=== PATIENT | male | born 1975 | race Caucasian/White ===

== ENCOUNTER 2017-11-18 08:00 | Outpatient (CLI) | payer OTHER | END 2017-11-18 08:01 | disposition home or self-care (01) | LOC: LAB.WCP 08:00 | PROVIDERS: ATTEND Family Medicine | DX: E05.90 Thyrotoxicosis, unspecified without thyrotoxic crisis or storm (principal) | CPT/HCPCS: 36415; 81599; 83519; 84439; 84481 ==

== ENCOUNTER 2017-11-22 07:45 | Outpatient (CLI) | payer OTHER ==
--- NOTE | 2017-11-22 09:58 | MRI Report ---
Reason: DIZZINESS, HAND WEAKNESS, RIGHT Procedure Date: 11/22/2017 Accession Number: [id number] / [id number] Procedure: MRI - Brain W/O CPT Code: FULL RESULT: EXAM: MRI BRAIN WITHOUT CONTRAST EXAM DATE: 11/22/2017 08:34 AM. CLINICAL HISTORY: 42-year-old male with dizziness, right hand numbness, and weakness. Tingling sensations. COMPARISON: [facility] W/ 05/11/2014. TECHNIQUE: Multiplanar, multisequence T1-weighted and fluid-sensitive MR sequences of the brain were performed. Sequences optimized for routine evaluation. Other: None. IV Contrast: None. FINDINGS: Brain Volume: Normal for age. Parenchyma/Dura: There is slight DWI hyperintensity involving the right superior cerebellar peduncle (series 305 image 56) and right brachium pontis (series 305 image 48), with associated FLAIR signal abnormality (for example series 701 image 15, image 16). No significant underlying mass effect appreciated. No parenchymal foci susceptibility artifact. No mass effect acute infarct or hemorrhage. No white matter lesions identified. 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 No hydrocephalus. No abnormal extra-axial fluid collection or hemorrhage. Orbits: Symmetric and unremarkable. Sella Turcica: The pituitary gland, cavernous sinuses, suprasellar cistern and optic chiasm are unremarkable. IAC: Symmetric and unremarkable. Vasculature: Normal signal flow void is seen in the major arterial structures at the skull base. Sinuses: No acute appearing sinus disease. Bones: No focal pathologic appearing marrow signal changes. Other: None. IMPRESSION: 1. There is slight DWI hyperintensity involving the right superior cerebellar peduncle (series 305 image 56) and right brachium pontis (series 305 image 48), with associated FLAIR signal abnormality (for example series 701 image 15, image 16). No significant underlying mass effect appreciated. Imaging appearance on this noncontrast study is nonspecific, primary differential considerations including a subacute infarct, underlying neoplasm such as glioma, and focus of demyelination/inflammation. Consider follow-up contrast-enhanced MRI to better evaluate. Continued surveillance recommended. In addition, correlate with the patient history and characteristics of symptom onset. 2. 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 The imaging appearance on this noncontrast study is nonspecific, possible diagnostic considerations include central neurocytoma, ependymal cyst. For this finding as well, contrast-enhanced MRI would be of benefit. 3. No MRI evidence of acute infarct, acute intracranial hemorrhage, mass effect, midline shift, or hydrocephalus. RADIA The above findings were discussed with Dr. Beard by Dr. Palmira Arshad at 09:56 hrs on 11/22/17.
[2017-11-22] MEDS ORDERED: GADOBUTROL 10 MMOL/10 ML VIAL ONE (12:12)
[2017-11-22] MEDS ORDERED: GADOBUTROL 10 MMOL/10 ML VIAL IVP ONE (13:15)
--- NOTE | 2017-11-22 14:09 | MRI Report ---
Reason: PRIOR ABN MRI Procedure Date: 11/22/2017 Accession Number: [id number] / [id number] Procedure: MRI - Brain W/Contrast CPT Code: FULL RESULT: EXAM: MRI BRAIN WITH CONTRAST EXAM DATE: 11/22/2017 01:05 PM. CLINICAL HISTORY: Signal abnormality in the right superior and middle cerebellar peduncle on noncontrast study earlier in the day. Small nodule in the right lateral ventricle. COMPARISON: BRAIN W/O 11/22/2017 8:06 AM. TECHNIQUE: Multiplanar, postcontrast T1-weighted MR sequences of the brain were performed. Sequences optimized for postcontrast evaluation. Other: None. IV Contrast: 10 cc Gadavist. FINDINGS: (See report of noncontrast brain MRI earlier in the day.) Brain Volume: Normal for age. Parenchyma: Peripheral enhancement is seen in the right superior cerebellar peduncle extending into the adjacent superior aspect of the middle cerebellar peduncle. This surrounds the previously noted FLAIR bright signal in this location. Mild central T1 hypointense signal is seen. No significant mass effect is evident. No additional foci of abnormal intracranial enhancement is appreciated Previously noted small nodule along the right aspect of the septum pellucidum within the anterior body of the right lateral ventricle is not well seen. No abnormal enhancement is seen. Faint peripheral T1 isointense nodule measuring approximately 6 mm in diameter and 2 mm in thickness is seen. ventricles/Cisterns: No hydrocephalus. No abnormal extra-axial fluid collection or hemorrhage. Orbits: Symmetric and unremarkable. Sella Turcica: The pituitary gland, cavernous sinuses, suprasellar cistern and optic chiasm are unremarkable. IAC: Symmetric and unremarkable. Vasculature: Normal enhancement of arterial system is seen at the skull base. Normal enhancement of the dural sinuses is noted. The right transverse sinus and jugular bulb are dominant. Sinuses: No acute sinus disease. Bones: No focal pathologic appearing marrow signal changes. Other: None. IMPRESSION: (See report of noncontrast brain MRI earlier in the day.) 1. Peripheral enhancement seen about FLAIR bright signal abnormality in the right superior cerebellar peduncle and adjacent superior middle cerebellar peduncle. Findings suggest demyelination or inflammatory process. Sequela of subacute ischemia is considered unlikely. Neoplasm is considered less likely. Follow-up examination to assess stability would be of value. 2. No abnormal enhancement seen within nodule along the right aspect of the septum pellucidum within the anterior body of the right lateral ventricle. Lack of enhancement may go along with ependymal cyst or subependymoma. Central neurocytoma, ependymoma, meningioma, and choroid plexus papilloma would all typically demonstrate enhancement. RADIA
== END 2017-11-22 07:46 | disposition home or self-care (01) ==
LOC: DI 07:45
PROVIDERS: ATTEND Family Medicine
DX: R42 Dizziness and giddiness (principal); R29.898 Other symptoms and signs involving the musculoskeletal system; R90.89 Other abnormal findings on diagnostic imaging of central nervous system; E05.90 Thyrotoxicosis, unspecified without thyrotoxic crisis or storm
CPT/HCPCS: 70551; 70552; A9585

== ENCOUNTER 2017-11-22 08:47 | Outpatient (CLI) | payer OTHER | END 2017-11-22 08:48 | disposition home or self-care (01) | LOC: LAB 08:47 | PROVIDERS: ATTEND Family Medicine | DX: E05.90 Thyrotoxicosis, unspecified without thyrotoxic crisis or storm (principal); R42 Dizziness and giddiness | CPT/HCPCS: 36415; 81599; 83519; 84443; 86140 ==

== ENCOUNTER 2018-11-09 14:04 | Emergency (ER) | payer OTHER ==
[2018-11-09 14:38] LABS: BASOPHILS % (AUTO) 0.2 %; EOSINOPHILS # (AUTO) 0.4 10^3/uL (0.0-0.7); EOSINOPHILS % (AUTO) 3.3 %; HGB - HEMOGLOBIN 14.2 g/dL (14.0-18.0); LYMPHOCYTES # (AUTO) 1.9 10^3/uL (1.5-3.5); LYMPHOCYTES % (AUTO) 16.9 %; MEAN CORPUSCULAR HEMOGLOBIN 28.5 pg (27.0-31.0); MEAN CORPUSCULAR HGB CONC 35.1 g/dL (32.0-36.0); MEAN CORPUSCULAR VOLUME 81.3 fL (80.0-94.0); MEAN PLATELET VOLUME 9.1 fL (7.4-11.4); MONOCYTES # (AUTO) 0.7 10^3/uL (0.0-1.0); NEUTROPHILS # (AUTO) 8.1 10^3/uL (1.5-6.6); NEUTROPHILS % (AUTO) 73.1 %; PLT - PLATELET COUNT 267 10^3/uL (130-450); RED BLOOD COUNT 4.98 10^6/uL (4.70-6.10); RED CELL DISTRIBUTION WIDTH 11.9 % (12.0-15.0); WHITE BLOOD COUNT 11.1 x10^3/uL (4.8-10.8)
[2018-11-09 14:50] LABS: ALBUMIN 4.3 g/dL (3.2-5.5); ALBUMIN/GLOBULIN RATIO 1.9 (1.0-2.2); BILIRUBIN,TOTAL 0.8 mg/dL (0.2-1.0); CALCIUM 9.2 mg/dL (8.5-10.3); CREATININE 0.9 mg/dL (0.6-1.2); TOTAL PROTEIN 6.6 g/dL (6.7-8.2)
--- NOTE | 2018-11-09 14:51 | XRAY Report ---
Reason: chest pain Procedure Date: 11/09/2018 Accession Number: [id number] / [id number] Procedure: XR - Chest 1 View X-Ray CPT Code: 77927 FULL RESULT: EXAM: CHEST RADIOGRAPHY EXAM DATE: 11/09/2018 02:42 PM. CLINICAL HISTORY: Chest pain. COMPARISON: None. TECHNIQUE: 1 view. FINDINGS: Lungs/Pleura: No focal opacities evident. No pleural effusion. No pneumothorax. Mediastinum: Within exam limitations, the cardiomediastinal contour is normal. Other: None. IMPRESSION: No acute cardiopulmonary abnormality. RADIA
[2018-11-09] MEDS ORDERED: SODIUM CHLORIDE 0.9% 1,000 ML IV ONE (15:13)
--- NOTE | 2018-11-09 15:15 | ED Physician Documentation ---
PD HPI CHEST PAIN - Stated complaint Stated Complaint: CHEST PAIN - Chief complaint Chief Complaint: General - History obtained from History obtained from: Patient, Family - History of Present Illness Timing - onset: Today Timing - onset during: Rest Timing - duration: Minutes Timing - details: Abrupt onset, Now resolved Quality: Sharp, Pain Location: Right chest Radiation: No: Jaw, Neck, Back, Abdominal, Left upper extremity, Right upper extremity Improved by: Nothing Worsened by: No: Exertion, Inspiration Associated symptoms: Shortness of air, Feeling faint / dizzy, General Weakness. No: Diaphoresis, Nausea, Vomiting, Palpitations, Cough Similar symptoms before: Has not had sx before Recently seen: Other (recent MS flare) - Additional information Additional information: 43-year-old male with a history of MS has developed right-sided chest pain this morning and he has had this in episodes lasting about 1 minute. He states that he felt this was heartburn initially any used all of his usual treatments for this including antacids and omeprazole. He did not get any relief with the use of this. He states this feels a bit different than his heartburn and that it is to the right side of his chest and does not respond to the antacids. He has had a recent flare of his MS and this past week he received 3 daily infusions of Solu-Medrol 1 g each he had improvement in his symptoms. He does feel that he needs to stop and take a deep breath periodically. Review of Systems Constitutional: denies: Fever Eyes: denies: Decreased vision Ears: denies: Ear pain Nose: denies: Congestion Throat: denies: Sore throat Cardiac: reports: Chest pain / pressure. denies: Palpitations, Pedal edema, Calf pain Respiratory: reports: Dyspnea. denies: Cough, Hemoptysis, Wheezing GI: denies: Abdominal Pain, Nausea, Vomiting, Constipation, Diarrhea : denies: Dysuria, Frequency PD PAST MEDICAL HISTORY - Present Medications Home Medications: Ambulatory Orders Medication Instructions Recorded Confirmed Buprenorphine HCl/Naloxone HCl 8 mg PO BID 11/28/17 11/03/18 [Suboxone 8-2 mg Sl tab] Varenicline Tartrate [Chantix] 0.5 mg PO DAILY 11/28/17 11/03/18 - Allergies Allergies/Adverse Reactions: Allergies Allergy/AdvReac Type Severity Reaction Status Date / Time Penicillins Allergy Rash Verified 01/29/18 14:59 PD ED PE NORMAL - Vitals Vital signs reviewed: Yes (hypertensive ) - General General: Alert and oriented X 3, No acute distress, Well developed/nourished - HEENT HEENT: Atraumatic, PERRL, EOMI, Ears normal, Pharynx benign, Other (dry mucous membranes ) - Neck Neck: Supple, no meningeal sign, No bony TTP - Cardiac Cardiac: No murmur, Other (tachy to 100) - Respiratory Respiratory: No respiratory distress, Clear bilaterally, Other (no chest wall tenderness) - Abdomen Abdomen: Soft, Non tender - Back Back: No CVA TTP, No spinal TTP - Derm Derm: Normal color, Warm and dry, No rash - Extremities Extremities: No deformity, No edema - Neuro Neuro: Alert and oriented X 3, neuroscience director na 2-12 intact, No motor deficit, No sensory deficit, Normal speech Eye Opening: Spontaneous Motor: Obeys Commands Verbal: Oriented GCS Score: 15 - Psych Psych: Normal mood, Normal affect Results - Vitals Vitals: Vital Signs - 24 hr 11/09/18 11/09/18 14:11 15:28 Temperature 36.8 C Heart Rate 94 76 Respiratory 14 10 L Rate Blood Pressure 145/91 H 133/85 H O2 Saturation 98 98 Oxygen O2 Source Room air - EKG (time done) 1416 Rate: Rate (enter#) Rhythm: NSR Ischemia: Q waves Other comments: Other comments (RSR' in V1) Compare to prior EKG: Old EKG unavailable Computer interpretation: Disagree with computer (I do not see abnormal Q-waves inferiorly ) - Labs Labs: Laboratory Tests 11/09/18 11/09/18 11/09/18 14:30 14:30 14:30 WBC 11.1 H RBC 4.98 Hgb 14.2 Hct 40.5 L MCV 81.3 MCH 28.5 MCHC 35.1 RDW 11.9 L Plt Count 267 MPV 9.1 Neut # (Auto) 8.1 H Lymph # (Auto) 1.9 Thurston # (Auto) 0.7 Eos # (Auto) 0.4 Baso # (Auto) 0.0 Absolute Nucleated RBC 0.00 Nucleated RBC % 0.0 Sodium 134 L Potassium 4.1 Chloride 93 L Carbon Dioxide 31 Anion Gap 10.0 BUN 12 Creatinine 0.9 Estimated GFR (MDRD) 92 Glucose 145 H Calcium 9.2 Total Bilirubin 0.8 AST 30 ALT 63 H Alkaline Phosphatase 54 Troponin I High Sens 2.6 Total Protein 6.6 L Albumin 4.3 Globulin 2.3 Albumin/Globulin Ratio 1.9 Lipase 23 - Rads (name of study) chest Radiology: Prelim report reviewed (Impression: No acute cardiopulmonary abnormality.), EMP read indepedently, See rad report Procedures - IVC sono (time) 1505 Bedside IVC sono: IVC measures (cm) (0.89), IVC collapsed c insp (cm) (complete), Dehydration (est 1-2 liter deficit) PD MEDICAL DECISION MAKING - ED course Complexity details: reviewed old records, reviewed results, re-evaluated patient, considered differential, d/w patient, d/w family ED course: 43-year-old male with history of MS with a recent flare comes into the [facility] today complaining of chest pain. His electrocardiogram does not demonstrate any ST elevation. He has intermittent episodes of chest pain lasting about 1 minute on the right side. Without radiation. He also has a complaint of feeling that he needs to stop and take a deep breath periodically. He is found to be dehydrated on interrogation the inferior vena cava and he is administered intravenous saline. Departure - Departure Disposition: 01 Home, Self Care Clinical Impression: Dehydration, Atypical chest pain Instructions: ED Dehydration, ED Chest Pain Atypical Unkn Cause Follow-Up: Ismael Thomas DO [Primary Care Provider] -
[2018-11-09 15:29] VITALS: BP 133/85
== END 2018-11-09 16:00 | disposition home or self-care (01) ==
LOC: ED 14:04
DX: E86.0 Dehydration (principal); R07.89 Other chest pain; G35 Multiple sclerosis
CPT/HCPCS: 36415; 71045; 80053; 83690; 84484; 85025; 93005; 99284